=== PATIENT | female | born 1990 | race Caucasian/White ===

== ENCOUNTER 2019-03-13 11:22 | Day surgery (SDC) | payer BC ==
[2019-03-12 11:43] VITALS: BMI 30.1
[2019-03-13 11:40] VITALS: RESP 16; TEMP 97.8
[2019-03-13] MEDS ORDERED: LIDOCAINE 1% 20 ML VIAL (10MG/ML) FOR IV START INTRADERMA ONE (11:40)
[2019-03-13] MEDS ORDERED: LACTATED RINGERS 1,000 ML IV ONE (11:42)
[2019-03-13] MEDS ORDERED: fentaNYL (PF) 50 MCG/ML 2 ML AMP ONE (12:28)
[2019-03-13] MEDS ORDERED: MIDAZOLAM 2 MG/2 ML VIAL ONE (12:28)
[2019-03-13] MEDS ORDERED: PROPOFOL 10 MG/ML 20 ML VIAL IV ONE (12:28)
--- NOTE | 2019-03-13 12:50 | P.PCN ---
Date of Procedure: 03/13/19 Description of Procedure: BRIEF HISTORY: Patient is a pleasant 28-year-old female who presents for outpatient evaluation of refractory GERD. The patient reports reflux disease occurring over the past few months. She has been on twice daily omeprazole therapy with no improvement of her symptoms. In addition the patient reports occasional episodes of dysphagia and sensation of esophageal spasm. PROCEDURE PERFORMED: Esophagogastroduodenoscopy with biopsy. PREOPERATIVE DIAGNOSIS: GERD, chest pain. ESTIMATED BLOOD LOSS: Minimal. IV sedation per anesthesia. PROCEDURE: After informed consent was obtained, the patient was brought into the endoscopy unit. IV sedation was administered by Anesthesia under continuous monitoring. Initially the Olympus GIF-190 video endoscope was inserted into the mouth. Esophagus intubated without any difficulty. It was gradually advanced into the stomach and duodenum and carefully examined. The bulb and the second part of the duodenum appeared normal, with biopsies taken. The scope at this time was withdrawn to the stomach, adequately insufflated with air, and upon careful examination, mucosa of the antrum, body, cardia and the fundus appeared normal except for some mild scattered erythema in the antrum and body suggestive of mil d gastritis which was biopsied. The scope was then withdrawn into the esophagus. The GE junction was located at 39 cm from the incisors, with biopsies taken in the setting of refractory reflux. Mid esophageal biopsies taken. The esophagus appeared normal. There were no erosions or ulcerations seen and the patient tolerated the procedure well. IMPRESSION: 1. Mild gastritis, biopsied. 2. Mid esophageal biopsies, GE junction biopsies, duodenal biopsies. RECOMMENDATIONS: The findings of this examination were discussed with the patient and her friend. Await results from biopsies. Would recommend patient follow up in office in 3- 4 weeks for discussion of further treatment and management. Okay to resume diet.
[2019-03-13 13:03] VITALS: BP 122/84
[2019-03-13 13:17] VITALS: PULSE 92
== END 2019-03-13 13:29 | disposition home or self-care (01) ==
LOC: ORWHC2ENDO 11:22
PROVIDERS: ATTEND Internal Medicine
DX: K29.50 Unspecified chronic gastritis without bleeding (principal); K21.9 Gastro-esophageal reflux disease without esophagitis; R13.10 Dysphagia, unspecified; J45.909 Unspecified asthma, uncomplicated; Z79.3 Long term (current) use of hormonal contraceptives; Z79.899 Other long term (current) drug therapy
CPT/HCPCS: 88305; 43239; J2250; J3010; J2704